=== PATIENT | male | born 1960 | race Caucasian/White ===

== ENCOUNTER 2017-05-09 10:54 | Day surgery (SDC) | payer OTHER ==
[~2017-05-09 10:54] MED LIST: PROPOFOL INJ 200 MG/20 ML VIAL IV ONE
[2017-05-09 12:53] VITALS: BP 132/74
--- NOTE | 2017-05-09 13:54 | Operative Report ---
Operative Report DATE OF SURGERY: 05/09/17 Operative Report: The risks, benefits and alternatives of the procedure including risks of bleeding, perforation requiring surgery explained to the patient detail and informed consent was obtained. Patient was brought back to the endoscopy suite suite and placed in the left, lateral decubital position. Timeout was called. Propofol medications administered. A rectal examination was done which did not reveal any masses, tears or fissures. An Olympus videoscope was inserted into the patient's rectum. The scope was then carefully advanced all the way to the cecum. The cecum was identified by the usual anatomical landmarks including the ileocecal valve as well as the appendiceal office. Photodocumentation was obtained. Prep was good. The scope was then sequentially pulled back via the various segments of the colon including the ascending colon, hepatic flexure, transverse colon, splenic flexure, descending colon finally to the rectosigmoid portions of the colon. Retroflexion maneuver was performed. PREOPERATIVE DIAGNOSIS: Colorectal cancer screening POSTOPERATIVE DIAGNOSIS: 3 polyps removed one in the hepatic flexure, sigmoid, rectum respectively OPERATION: Colonoscopy with snare polypectomy SURGEON: SABINO GOTTLIEB ANESTHESIA: LMAC TISSUE REMOVED OR ALTERED: Polyps retrieved as noted COMPLICATIONS: None. ESTIMATED BLOOD LOSS: None. INTRAOPERATIVE FINDINGS: No obstructive masses noted, no AVMs, no diverticulosis. Mild internal hemorrhoids PROCEDURE: Patient tolerated the procedure well. No immediate postprocedure complications are noted. Patient discharged in good condition. Discharge date 05/09/2017. Discharge diet: Regular. Discharge activity: Regular. 2-3 week follow-up to discuss findings. 3-5 year surveillance colonoscopy. We will wait on pathology. Patient is instructed to call the office or proceed to the emergency room should there be any further problems or questions.
== END 2017-05-09 12:50 | disposition home or self-care (01) ==
LOC: END 10:54
PROVIDERS: ATTEND Internal Medicine Gastroenterology
PROC: 0DBN8ZX Excision of Sigmoid Colon, Via Natural or Artificial Opening Endoscopic, Diagnostic (ICD-10-PCS; 2017-05-09)
PROC: 0DBK8ZX Excision of Ascending Colon, Via Natural or Artificial Opening Endoscopic, Diagnostic (ICD-10-PCS; 2017-05-09)
PROC: 0DBP8ZX Excision of Rectum, Via Natural or Artificial Opening Endoscopic, Diagnostic (ICD-10-PCS; principal; 2017-05-09 14:30)
DX: Z12.11 Encounter for screening for malignant neoplasm of colon (principal); D12.8 Benign neoplasm of rectum; D12.2 Benign neoplasm of ascending colon; K63.5 Polyp of colon; R01.1 Cardiac murmur, unspecified; K64.8 Other hemorrhoids
CPT/HCPCS: 45385; 88305 ×2; J2704; 810